=== PATIENT | female | born 1935 | race Caucasian/White ===

== ENCOUNTER 2024-05-20 10:24 | Emergency (ER) | payer MEDICARE ==
[~2024-05-20] VITALS: Ht 154.9 cm; Wt 44.5 kg
[2024-05-20 11:46] LABS: BASO # 0.1 10*3/uL (0.0-0.1); BASO % 0.9 % (0.0-1.0); EOS # 0.1 10*3/uL (0.0-0.4); EOS % 1.6 % (1.0-4.0); HEMATOCRIT 37.9 % (37.0-47.0); LYMPH # 1.4 10*3/uL (1.3-4.4); LYMPH % 25.3 % (27.0-41.0); MEAN CELL VOLUME 105.6 fl (81.0-99.0); MEAN CORPUSCULAR HGB 34.5 pg (27.0-31.0); MEAN CORPUSCULAR HGB CONC 32.7 g/dl (33.0-37.0); MEAN PLATELET VOLUME 9.7 fl (9.6-12.3); MONO # 0.5 10*3/uL (0.1-1.0); MONO % 9.2 % (3.0-9.0); NEUT # 3.4 10*3/uL (2.3-7.9); NEUT % 62.8 % (47.0-73.0); PLATELET COUNT AUTOMATED 234 10*3/uL (130-400); RED BLOOD COUNT 3.59 10*6/uL (4.10-5.10); RED CELL DISTRI WIDTH 12.7 % (0-14.5); WHITE BLOOD COUNT 5.5 10*3/uL (4.8-10.8)
[2024-05-20 11:59] LABS: ACT PARTIAL THROMBO TIME 26.9 SECONDS (20.0-32.1)
[2024-05-20 12:11] LABS: ALKALINE PHOSPHATASE 61 U/L (46-116); BUN 14 mg/dl (9-23); CHLORIDE 109 mmol/L (98-107); POTASSIUM 4.2 mmol/L (3.4-5.1); SGPT/ALT 7 U/L (5-49); TOTAL PROTEIN 6.7 gm/dL (6.0-8.0)
[2024-05-20] MEDS ORDERED: Labetalol Hydrochloride 20 MG/4 ML SYR IV ONE (14:15)
[2024-05-20 14:18] LABS: BILIRUBIN Negative (Negative); BLOOD Negative (Negative); CLARITY Clear (Clear); COLOR Yellow (Yellow); GLUCOSE Negative (Negative); KETONE Trace (Negative); LEUKO ESTERASE Negative (Negative); NITRITE Negative (Negative); UROBILINOGEN 0.2 E.U./dl (0.0-1.0)
[2024-05-20 14:28] LABS: BACTERIA TRACE; WBC 0-2 wbc/hpf (0-5)
[2024-05-20] MEDS ORDERED: AMLODIPINE BESYL5 MG PO (14:43)
== END 2024-05-20 14:56 | disposition home or self-care (01) ==
LOC: ED 10:24
PROVIDERS: Emergency Medicine
DX: I10 Essential (primary) hypertension (principal); M19.90 Unspecified osteoarthritis, unspecified site; R10.2 Pelvic and perineal pain; Z88.0 Allergy status to penicillin; Z88.1 Allergy status to other antibiotic agents; Z88.5 Allergy status to narcotic agent; Z88.8 Allergy status to other drugs, medicaments and biological substances; Z90.49 Acquired absence of other specified parts of digestive tract; Z98.51 Tubal ligation status; Z90.89 Acquired absence of other organs

== ENCOUNTER 2025-05-07 01:56 | Emergency (ER) | payer MEDICARE ==
[~2025-05-07] VITALS: Ht 152.4 cm; Wt 44.9 kg
[~2025-05-07 01:56] MED LIST: AMLODIPINE BESYL5 MG PO
[2025-05-07] MEDS ORDERED: VENT7GM INH (02:16)
[2025-05-07 02:35] LABS: BASO # 0.1 10*3/uL (0.0-0.1); BASO % 0.6 % (0.0-1.0); EOS # 0.2 10*3/uL (0.0-0.4); EOS % 2.1 % (1.0-4.0); MEAN CELL VOLUME 105.4 fl (81.0-99.0); MEAN CORPUSCULAR HGB 34.4 pg (27.0-31.0); MEAN PLATELET VOLUME 9.8 fl (9.6-12.3); MONO # 1.0 10*3/uL (0.1-1.0); MONO % 9.3 % (3.0-9.0); NEUT # 6.8 10*3/uL (2.3-7.9); NEUT % 66.4 % (47.0-73.0); NUCLEATED RED BLOOD CELL 0.0 % (0.0-0.0); NUCLEATED RED BLOOD CELL 0.0 10*3/uL (0.0-0.0); PLATELET COUNT AUTOMATED 235 10*3/uL (130-400); RED CELL DISTRI WIDTH 12.0 % (0-14.5)
[2025-05-07 02:54] LABS: BUN 25.0 mg/dl (9-23)
[2025-05-07 03:05] LABS: BILIRUBIN Negative (Negative); BLOOD 2+ (Negative); CLARITY Turbid (Clear); COLOR Yellow (Yellow); KETONE Negative (Negative); LEUKO ESTERASE 3+ (Negative); NITRITE Negative (Negative); PH 6.0 (4.5-8.0); SPECIFIC GRAVITY <= 1.005 (1.001-1.030); UROBILINOGEN 0.2 E.U./dl (0.0-1.0)
[2025-05-07] MEDS ORDERED: SODIUM CHLORIDE 0.9% 1,000 ML IV ONE (03:10)
[2025-05-07 03:13] LABS: WBC 41-50 wbc/hpf (0-5)
[2025-05-07 03:14] LABS: BACTERIA 2+; RBC 16-20 rbc/hpf (0-2)
[2025-05-07] MEDS ORDERED: Ciprofloxacin Hydrochloride 500 MG TAB PO ONE (03:45)
[2025-05-07] MEDS ORDERED: Ondansetron Hydrochloride 4 MG/2 ML VIAL IV ONE (03:45)
[2025-05-07] MEDS ORDERED: CIPRO500 MG PO (04:44)
== END 2025-05-07 05:12 | disposition home or self-care (01) ==
LOC: ED 01:56
PROVIDERS: Internal Medicine
DX: N17.9 Acute kidney failure, unspecified (principal); N39.0 Urinary tract infection, site not specified; D75.89 Other specified diseases of blood and blood-forming organs; Z79.899 Other long term (current) drug therapy; Z88.0 Allergy status to penicillin; Z88.1 Allergy status to other antibiotic agents; Z88.5 Allergy status to narcotic agent; Z90.49 Acquired absence of other specified parts of digestive tract; Z90.89 Acquired absence of other organs; Z98.51 Tubal ligation status